=== PATIENT | male | born 1970 | race Caucasian/White ===

== ENCOUNTER → 2023-08-22 11:29 | Outpatient (REF) | payer OTHER, SELFPAY | LOC: RAD 11:29 | PROVIDERS: ATTENDING PHYSICIAN Physician Assistant | DX: R22.1 Localized swelling, mass and lump, neck (principal) | CPT/HCPCS: 76536 ==

== ENCOUNTER 2023-10-02 06:09 | Day surgery (SDC) | payer OTHER, SELFPAY ==
[2023-10-02 07:06] VITALS: BMI 25.7
[2023-10-02 07:07] VITALS: BMI 25.7
[2023-10-02 07:08] VITALS: BP 140/95
[2023-10-02] MEDS: NORMOSOL-R 1000 IV (07:20)
[2023-10-02] MEDS: TYLENOL 1000 MG PO (07:20)
--- NOTE | 2023-10-02 07:20 | W.SUR.PREOP ---
Pre-Operative Surgical Note
-
I have examined this patient prior to the performance of the scheduled procedure.
The patient's condition is unchanged from the time of the current History and
Physical and the patient is able to undergo the scheduled procedure.
[2023-10-02 08:25] VITALS: BP 119/77
[2023-10-02 08:40] VITALS: BP 108/76
--- NOTE | 2023-10-02 08:49 | W.IMMPOSTOP ---
Surgical Immed Post Op Note
-
Primary Surgeon: Ash Carnes MD
Assisting Surgeon: None
Pre-op Diagnosis: Recurrent lipoma of the neck, lipoma of the back
Post-op Diagnosis: Recurrent lipoma of the neck, intramuscular lipoma of the back.
Procedure Performed:
1. Excision of recurrent lipoma of the neck
2. Excision of lipoma of the back
Anesthesia Type: General
Specimen / Cultures:
1. Lipoma of the neck (3 x 3 cm)
2. Lipoma of the back (2 x 1 cm)
Estimated Blood Loss: 3 cc
Complications: None
Operative Findings: 3 x 3 cm unencapsulated, subcutaneous lipoma of the neck identified and removed. A 2 x 1 cm encapsulated, intramuscular lipoma of the right mid back was identified deep to the paraspinal muscle.
--- NOTE | 2023-10-02 08:52 | OR.RPT ---
Operative Report
Operative Report
Patient Name: River Friedman
: 1970
Date of Operation: 10/02/2023
Surgeon(s):
Dr. Carnes
Nutrition Associate(s):
None
Pre-op Diagnosis: Recurrent lipoma of the neck, lipoma of the back
Post-op Diagnosis: Recurrent lipoma of the neck, intramuscular lipoma of the back.
Procedure Performed:
1. Excision of recurrent lipoma of the neck
2. Excision of lipoma of the back
Anesthesia Type: MAC
Specimen / Cultures:
1. Lipoma of the neck (3 x 3 cm)
2. Lipoma of the back (2 x 1 cm)
Estimated Blood Loss: 3 cc
Complications: None
Indication for surgery:
This is a 53-year-old male who presented to my office for evaluation of a recurrent subcutaneous mass in his left posterior neck. He has a history of lipoma removal in that area. He was told that this was 'close to a nerve' and so was not removed
completely. He remains quite symptomatic and has difficulty turning his neck as this causes him pain. He also has a minimally symptomatic right mid back mass just to the right of his spine. He was diagnosed with a recurrent lipoma of the
posterior neck as well as a lipoma of the right mid back. After discussion of risk benefits and alternatives he elected and was consented for surgery.
Operative Findings: 3 x 3 cm unencapsulated, subcutaneous lipoma of the neck identified and removed. A 2 x 1 cm encapsulated, intramuscular lipoma of the right mid back was identified deep to the paraspinal muscle.
Details of the operation:
The patient was brought to the operating room a placed in the prone position. After appropriate sedation by anesthesia, the area of the back and neck was prepped and draped in the usual fashion. A linear incision over natural skin lines in the
neck was made over the mass using his previous incision and carried down through the subcutaneous tissue. The lipoma was identified and freed circumferentially taking care not to come across the many interdigitating extensions that it had. The
lipoma appeared unencapsulated and measured roughly 3 x 3 cm. No visible nerve was identified in the area. The wound was then closed in layers with 3-0 Vicryl followed by a running 4-0 subcuticular Monocryl suture. We then turned our attention to
the lipoma of the right mid back which had been marked preoperatively. Initially, it was difficult to identify the lipoma as it was no longer palpable. Incision was made over natural skin line and carried down through the Joe's fascia and
underlying soft tissue, again was not easy to identify or palpate the lipoma but a lump was noted at the inferior portion of the incision. The fascia of the paraspinal muscle was identified and incised slightly. The lipoma was then easily
identified and expressed into the field and removed entirely. It was encapsulated and measured roughly 2 x 1 cm. The cavity was irrigated and hemostasis was achieved. This space was also then closed in layers with 3-0 Vicryl sutures closing the
fascia as well as the subcutaneous skin, followed by some subdermals. Both incisions were then closed with glue, ending the procedure. All counts were correct at the end of procedure. The patient was then transferred to the PACU for recovery in
good condition.
I was the attending physician and performed the procedure without assistance. I was present for all portions of the case
Ash Carnes MD
== END 2023-10-02 08:53 | disposition home or self-care (01) ==
LOC: SDS 06:09
PROVIDERS: ATTENDING PHYSICIAN Surgery
DX: D17.0 Benign lipomatous neoplasm of skin and subcutaneous tissue of head, face and neck (principal); D17.9 Benign lipomatous neoplasm, unspecified
CPT/HCPCS: 21931; 21555; 12042; 88304

== ENCOUNTER → 2023-10-18 06:31 | Day surgery (SDC) | payer OTHER, SELFPAY | LOC: GI 06:31 | PROVIDERS: ATTENDING PHYSICIAN Internal Medicine Gastroenterology | DX: Z12.11 Encounter for screening for malignant neoplasm of colon (principal); K57.30 Diverticulosis of large intestine without perforation or abscess without bleeding; K64.8 Other hemorrhoids; D12.0 Benign neoplasm of cecum; D12.2 Benign neoplasm of ascending colon; Z86.010 Personal history of colon polyps | CPT/HCPCS: 45385; 45380; 88305 ==

== ENCOUNTER → 2024-02-07 12:21 | Outpatient (REF) | payer OTHER, SELFPAY | LOC: PAVMRI 12:21 | PROVIDERS: ATTENDING PHYSICIAN Physical Medicine & Rehabilitation | DX: M54.12 Radiculopathy, cervical region (principal) | CPT/HCPCS: 72141 ==

== ENCOUNTER → 2024-04-09 07:48 | Outpatient (REF) | payer OTHER, SELFPAY | LOC: HWRAD 07:48 | PROVIDERS: ATTENDING PHYSICIAN Physician Assistant | DX: R10.32 Left lower quadrant pain (principal); M25.521 Pain in right elbow | CPT/HCPCS: 72110; 73080; 73502; 76870; 93976 ==